=== PATIENT | female | born 1975 | race Caucasian/White ===

== ENCOUNTER 2016-12-01 10:37 | Emergency (ER) | payer OTHER ==
[~2016-12-01] VITALS: Ht 162.6 cm; Wt 175.3 kg
[~2016-12-01 10:37] MED LIST: ADVIL,NUPRIN,M200 MG PO; AMOXICILLIN875 MG PO; AUGMENTIN875 MG PO; BUSPAR10 M1 PO; BUSPAR30 MG PO; CARDIZEM30 MG PO; CELEXA20 MG PO; CLEOCIN300 MG PO; CLINDAMYCIN HC300 MG PO; CYANOCOBAL1000 MCG/2 IM; DAILY VALUE1 EACH PO; GUMMY SWIRLS1 EACH PO; KLONOPIN0.5 M1 PO; LEVOTHROID,S0.112 MG PO; LEVOTHYROXINE112 MCG PO; LEVOTHYROXINE125 MCG PO; LEVOTHYROXINE200 MC1 PO; MARTINIC1 EACH PO; METFORMIN HCL1000 MG PO; METFORMIN HCL500 MG PO; MOTRIN600 MG PO; NORCO 5/3251 TABLET PO; PEN-VEE K,VEET500 MG PO; PERCOCET 5/31 TABLET PO; PHENERGAN25 MG PR; PROAIR HFA8.5 GM IH; SYNTHROID112 MCG PO; TESSALON PERLE100 MG PO; TIZANIDINE HCL2 M1 PO; TRAMADOL HCL50 MG PO; ULTRAM50 MG PO; VITAMIN D2000 UNIT PO; ZOFRAN4 MG PO
[2016-12-01 12:43] LABS: EOSINOPHIL (%) 1.8 % (0-5); EOSINOPHIL COUNT 0.1 K/uL (0-0.3); HEMATOCRIT 41.6 % (36.0-46.0); IMMATURE GRANULOCYTE (%) 0.1 % (0.0-0.7); IMMATURE GRANULOCYTE COUNT 0.1 K/uL; LYMPHOCYTE COUNT 1.4 K/uL (1.0-2.8); MCH 30.8 PG (29.0-34.0); MCHC 33.4 G/DL (30.0-36.0); MEAN PLAT.VOLUME 9.3 uM^3 (9.5-12.4); MONOCYTE (%) 6.2 % (3-12); MONOCYTE COUNT 0.5 K/uL (0-0.8); NEUTROPHIL (%) 73.6 % (45-76); NEUTROPHIL COUNT 5.8 K/uL (1.8-6.4); PLATELET COUNT 261 K/uL (156-360); RBC DIS.WIDTH-CV 13.1 % (11.8-14.6); RBC DIS.WIDTH-SD 43.1 % (39-53); RED BLOOD COUNT 4.52 M/uL (3.80-5.20); WHITE BLOOD COUNT 7.9 K/uL (4.1-10.2)
[2016-12-01 12:51] LABS: CHLORIDE 105 mEq/L (99-109); POTASSIUM 3.9 mEq/L (3.7-5.4); SODIUM 140 mEq/L (136-147)
[2016-12-01 12:53] LABS: GLUCOSE 204 mg/dL (70-99)
[2016-12-01 12:54] LABS: ANION GAP 9 MEQ/L (2-14)
[2016-12-01 12:57] LABS: GFR ESTIMATE (CALCULATED) > 59 mL/min/
[2016-12-01 12:58] LABS: UREA NITROGEN (BUN) 9 mg/dL (9-23)
[2016-12-01] MEDS ORDERED: FIORICET 50-301 EACH PO (14:11)
[2016-12-01 14:26] VITALS: BP 128/75
== END 2016-12-01 14:27 | disposition home or self-care (01) ==
LOC: EME 10:37
PROVIDERS: Emergency Medicine
DX: R42 Dizziness and giddiness (principal); I10 Essential (primary) hypertension; G47.30 Sleep apnea, unspecified; E03.9 Hypothyroidism, unspecified; Z87.442 Personal history of urinary calculi; Z98.84 Bariatric surgery status
CPT/HCPCS: 70450; 80048; 85025; 93005; 99281; 99284

== ENCOUNTER 2017-01-12 13:15 | Emergency (ER) | payer OTHER ==
[~2017-01-12] VITALS: Ht 162.6 cm; Wt 171.2 kg
[~2017-01-12 13:15] MED LIST changes: +FIORICET 50-301 EACH PO
[2017-01-12 14:00] LABS: HEMATOCRIT 44.7 % (36.0-46.0); MCH 30.7 PG (29.0-34.0); MCHC 32.9 G/DL (30.0-36.0); MCV 93.3 FL (83-99); MEAN PLAT.VOLUME 9.2 uM^3 (9.5-12.4); PLATELET COUNT 295 K/uL (156-360); RBC DIS.WIDTH-CV 12.8 % (11.8-14.6); RBC DIS.WIDTH-SD 43.9 % (39-53); RED BLOOD COUNT 4.79 M/uL (3.80-5.20); WHITE BLOOD COUNT 7.7 K/uL (4.1-10.2)
[2017-01-12 14:08] LABS: CHLORIDE 103 mEq/L (99-109); POTASSIUM 4.4 mEq/L (3.7-5.4); SODIUM 138 mEq/L (136-147)
[2017-01-12] MEDS ORDERED: LORAZEPAM1 MG PO (14:09)
[2017-01-12] MEDS ORDERED: CITALOPRAM HBR20 MG PO (14:09)
[2017-01-12 14:11] LABS: GLUCOSE 304 mg/dL (70-99)
[2017-01-12 14:12] LABS: ANION GAP 14 MEQ/L (2-14); TOTAL BILIRUBIN 0.3 mg/dL (0.0-1.0)
[2017-01-12 14:14] LABS: ALKALINE PHOSPHATASE 144 IU/L (3-129); GFR ESTIMATE (CALCULATED) > 59 mL/min/
[2017-01-12 14:15] LABS: UREA NITROGEN (BUN) 16 mg/dL (9-23)
[2017-01-12 14:18] LABS: LIPASE 40 U/L (1.0-51.0)
[2017-01-12 14:23] LABS: QUANTITATIVE HCG < 4.0 MIU/ML
[2017-01-12 14:27] LABS: ADD MIUA? YES; BILIRUBIN NEGATIVE; BLOOD NEGATIVE; COLOR YELLOW ((YELLOW)); GLUCOSE (STRIP) >=500; KETONES NEGATIVE; LEUKOCYTES TRACE; NITRITE NEGATIVE; PROTEIN (STRIP) 30; SPECIFIC GRAVITY 1.025 (1.000-1.030); UROBILINOGEN 0.2 MG/DL (0.2-1.0)
[2017-01-12 14:42] LABS: BACTERIA RARE /HPF; EPITHELIAL CELLS 2+ /HPF; MUCUS TRACE /LPF; RED BLOOD CELLS 0-5 /HPF (0-5)
[2017-01-12 14:43] LABS: GRANULAR CASTS RARE /LPF
[2017-01-12] MEDS ORDERED: ULTRAM50 MG PO (15:59)
[2017-01-12 16:24] VITALS: BP 123/72
== END 2017-01-12 16:30 | disposition home or self-care (01) ==
LOC: EME 13:15
PROVIDERS: Nurse Practitioner Family
DX: L76.34 Postprocedural seroma of skin and subcutaneous tissue following other procedure (principal); Y83.8 Other surgical procedures as the cause of abnormal reaction of the patient, or of later complication, without mention of misadventure at the time of the procedure; Z98.890 Other specified postprocedural states; E11.65 Type 2 diabetes mellitus with hyperglycemia; R19.7 Diarrhea, unspecified; E66.01 Morbid (severe) obesity due to excess calories; E03.9 Hypothyroidism, unspecified; Z98.84 Bariatric surgery status; Z68.44 Body mass index [BMI] 60.0-69.9, adult
CPT/HCPCS: 76705; 80053; 81003; 83605; 83690; 84702; 85027; 99281; 99284

== ENCOUNTER 2017-02-12 18:49 | Emergency (ER) | payer OTHER ==
[~2017-02-12] VITALS: Ht 165.1 cm; Wt 158.7 kg
[~2017-02-12 18:49] MED LIST changes: +CITALOPRAM HBR20 MG PO; +LORAZEPAM1 MG PO
[2017-02-12 19:24] LABS: HEMATOCRIT 44.2 % (36.0-46.0); MCH 30.4 PG (29.0-34.0); MCHC 32.4 G/DL (30.0-36.0); PLATELET COUNT 319 K/uL (156-360); RBC DIS.WIDTH-CV 13.1 % (11.8-14.6); RBC DIS.WIDTH-SD 44.6 % (39-53); WHITE BLOOD COUNT 6.5 K/uL (4.1-10.2)
[2017-02-12 19:32] LABS: CHLORIDE 107 mEq/L (99-109); POTASSIUM 4.4 mEq/L (3.7-5.4); SODIUM 142 mEq/L (136-147)
[2017-02-12 19:34] LABS: GLUCOSE 172 mg/dL (70-99)
[2017-02-12 19:35] LABS: ANION GAP 10 MEQ/L (2-14)
[2017-02-12 19:36] LABS: TOTAL BILIRUBIN 0.4 mg/dL (0.0-1.0)
[2017-02-12 19:37] LABS: ALKALINE PHOSPHATASE 91 IU/L (3-129)
[2017-02-12 19:38] LABS: GFR ESTIMATE (CALCULATED) > 59 mL/min/
[2017-02-12 19:39] LABS: UREA NITROGEN (BUN) 15 mg/dL (9-23)
[2017-02-12 19:46] LABS: QUANTITATIVE HCG < 4.0 MIU/ML
[2017-02-12 21:00] LABS: INTERNAL CONTROL VALID? YES
[2017-02-12 21:38] LABS: C DIFF TOXIN NEGATIVE (NEGATIVE)
[2017-02-12 21:49] LABS: PROBE CHECK PASS; SPECIMEN PROCESSING CONTROL PASS
[2017-02-12 22:59] VITALS: BP 100/65
== END 2017-02-12 23:06 | disposition home or self-care (01) ==
LOC: EME 18:49
PROVIDERS: Physician Assistant
DX: R10.9 Unspecified abdominal pain (principal); R19.7 Diarrhea, unspecified; F32.9 Major depressive disorder, single episode, unspecified; I10 Essential (primary) hypertension; G43.909 Migraine, unspecified, not intractable, without status migrainosus; G47.30 Sleep apnea, unspecified; E03.9 Hypothyroidism, unspecified; E66.9 Obesity, unspecified; Z98.84 Bariatric surgery status
CPT/HCPCS: 74177; 80053; 81003; 83630; 84702; 85027; 87177; 87493; 87506; 99281; 99284; J1200; J2270; J2765; J7030

== ENCOUNTER 2017-03-27 00:16 | Emergency (ER) | payer OTHER ==
[~2017-03-27] VITALS: Ht 162.6 cm; Wt 169.0 kg
[2017-03-27 02:36] LABS: EOSINOPHIL (%) 1.6 % (0-5); EOSINOPHIL COUNT 0.2 K/uL (0-0.3); HEMATOCRIT 44.7 % (36.0-46.0); IMMATURE GRANULOCYTE (%) 0.5 % (0.0-0.7); IMMATURE GRANULOCYTE COUNT 0.1 K/uL; INSTRUMENT ABS NEUTROPHIL CT 7.7 K/uL; LYMPHOCYTE COUNT 1.5 K/uL (1.0-2.8); MCH 30.4 PG (29.0-34.0); MCHC 32.7 G/DL (30.0-36.0); MCV 92.9 FL (83-99); MEAN PLAT.VOLUME 9.4 uM^3 (9.5-12.4); MONOCYTE COUNT 0.7 K/uL (0-0.8); NEUTROPHIL (%) 75.5 % (45-76); NEUTROPHIL COUNT 7.7 K/uL (1.8-6.4); PLATELET COUNT 281 K/uL (156-360); RBC DIS.WIDTH-CV 12.2 % (11.8-14.6); RBC DIS.WIDTH-SD 41.5 % (39-53); RED BLOOD COUNT 4.81 M/uL (3.80-5.20); WHITE BLOOD COUNT 10.2 K/uL (4.1-10.2)
[2017-03-27 02:47] LABS: CHLORIDE 97 mEq/L (99-109); POTASSIUM 4.9 mEq/L (3.7-5.4); SODIUM 137 mEq/L (136-147)
[2017-03-27 02:49] LABS: GLUCOSE 249 mg/dL (70-99)
[2017-03-27 02:50] LABS: ANION GAP 11 MEQ/L (2-14)
[2017-03-27 02:53] LABS: GFR ESTIMATE (CALCULATED) > 59 mL/min/
[2017-03-27 02:54] LABS: UREA NITROGEN (BUN) 19 mg/dL (9-23)
[2017-03-27 05:05] VITALS: BP 122/66
== END 2017-03-27 05:05 | disposition home or self-care (01) ==
LOC: EME 00:16
PROVIDERS: Emergency Medicine
DX: L02.211 Cutaneous abscess of abdominal wall (principal); T81.89XA Other complications of procedures, not elsewhere classified, initial encounter; T85.79XA Infection and inflammatory reaction due to other internal prosthetic devices, implants and grafts, initial encounter; I10 Essential (primary) hypertension; F32.9 Major depressive disorder, single episode, unspecified; Z87.442 Personal history of urinary calculi
CPT/HCPCS: 74177; 80048; 83605; 85025; 87040; 99281; 99284; J3010; J7030

== ENCOUNTER 2017-04-16 17:04 | Inpatient (IN) | payer OTHER ==
[~2017-04-16] VITALS: Ht 165.1 cm; Wt 170.6 kg
[2017-04-16 19:08] LABS: EOSINOPHIL (%) 0.1 % (0-5); HEMATOCRIT 38.7 % (36.0-46.0); IMMATURE GRANULOCYTE (%) 0.6 % (0.0-0.7); IMMATURE GRANULOCYTE COUNT 0.1 K/uL; INSTRUMENT ABS NEUTROPHIL CT 15.9 K/uL; LYMPHOCYTE COUNT 0.8 K/uL (1.0-2.8); MCV 93.7 FL (83-99); MEAN PLAT.VOLUME 8.9 uM^3 (9.5-12.4); MONOCYTE COUNT 1.3 K/uL (0-0.8); NEUTROPHIL (%) 87.5 % (45-76); NEUTROPHIL COUNT 15.9 K/uL (1.8-6.4); PLATELET COUNT 267 K/uL (156-360); RBC DIS.WIDTH-CV 12.9 % (11.8-14.6); RBC DIS.WIDTH-SD 44.1 % (39-53); RED BLOOD COUNT 4.13 M/uL (3.80-5.20); WHITE BLOOD COUNT 18.2 K/uL (4.1-10.2)
[2017-04-16 19:16] LABS: CHLORIDE 99 mEq/L (99-109); POTASSIUM 4.9 mEq/L (3.7-5.4); SODIUM 137 mEq/L (136-147)
[2017-04-16 19:18] LABS: GLUCOSE 205 mg/dL (70-99)
[2017-04-16 19:19] LABS: ANION GAP 9 MEQ/L (2-14)
[2017-04-16 19:22] LABS: GFR ESTIMATE (CALCULATED) > 59 mL/min/; UREA NITROGEN (BUN) 11 mg/dL (9-23)
[2017-04-16 23:11] LABS: BILIRUBIN NEGATIVE; BLOOD NEGATIVE; COLOR YELLOW ((YELLOW)); GLUCOSE (STRIP) NEGATIVE; KETONES 80; LEUKOCYTES NEGATIVE; NITRITE NEGATIVE; PROTEIN (STRIP) NEGATIVE; UROBILINOGEN 0.2 MG/DL (0.2-1.0)
[2017-04-16 23:13] LABS: ADD MIUA? NO; UCUL ADDED? NO
[2017-04-17] VITALS (8 sets, daily range): BP systolic 100–131; BP diastolic 52–75
[2017-04-17] MEDS ORDERED: VICTOZA0.6 MG/0.1 SC (00:41)
[2017-04-17] MEDS ORDERED: OXYCODONE HCL10 MG PO (00:42)
[2017-04-17 02:32] LABS: POINT-OF-CARE METER ID UU14100415
[2017-04-17 07:32] LABS: POINT-OF-CARE METER ID UU14162508
[2017-04-17 12:26] LABS: HEMATOCRIT 36.3 % (36.0-46.0); MCH 31.1 PG (29.0-34.0); MCHC 33.3 G/DL (30.0-36.0); MCV 93.3 FL (83-99); MEAN PLAT.VOLUME 9.2 uM^3 (9.5-12.4); PLATELET COUNT 263 K/uL (156-360); RBC DIS.WIDTH-CV 12.9 % (11.8-14.6); RBC DIS.WIDTH-SD 44.2 % (39-53); RED BLOOD COUNT 3.89 M/uL (3.80-5.20); WHITE BLOOD COUNT 19.3 K/uL (4.1-10.2)
[2017-04-17 12:26] LABS: POINT-OF-CARE METER ID UU14162508
[2017-04-17 16:15] LABS: POINT-OF-CARE METER ID UU14162508
[2017-04-17 21:40] LABS: POINT-OF-CARE METER ID UU14162508
[2017-04-18 04:26] VITALS: BP 115/63
[2017-04-18 06:48] LABS: HEMATOCRIT 32.8 % (36.0-46.0); MCH 30.2 PG (29.0-34.0); MCHC 31.7 G/DL (30.0-36.0); MCV 95.3 FL (83-99); MEAN PLAT.VOLUME 9.6 uM^3 (9.5-12.4); PLATELET COUNT 256 K/uL (156-360); RBC DIS.WIDTH-CV 12.9 % (11.8-14.6); RBC DIS.WIDTH-SD 44.5 % (39-53); RED BLOOD COUNT 3.44 M/uL (3.80-5.20); WHITE BLOOD COUNT 12.5 K/uL (4.1-10.2)
[2017-04-18 07:15] VITALS: BP 115/65
[2017-04-18 07:18] LABS: ALKALINE PHOSPHATASE 91 IU/L (3-129); ANION GAP 8 MEQ/L (2-14); CHLORIDE 102 MEQ/L (99-109); GFR ESTIMATE (CALCULATED) > 59 mL/min/; GLUCOSE 200 mg/dL (70-99); SAMPLE HEMOLYSIS CHECK 0; SAMPLE ICTERIC CHECK 0; SAMPLE LIPEMIA CHECK 0; SODIUM 139 MEQ/L (136-147); TOTAL BILIRUBIN 0.5 MG/DL (0.0-1.0); UREA NITROGEN (BUN) 12 mg/dL (9-23)
[2017-04-18 07:24] LABS: POINT-OF-CARE METER ID UU14162508
[2017-04-18 07:37] LABS: POTASSIUM 3.2 MEQ/L (3.7-5.4)
[2017-04-18 12:08] LABS: POINT-OF-CARE METER ID UU14162508
[2017-04-18 13:00] VITALS: BP 116/81
[2017-04-18 15:40] VITALS: BP 108/61
[2017-04-18 16:51] LABS: POINT-OF-CARE METER ID UU14162508
[2017-04-18 23:33] VITALS: BP 100/56
[2017-04-19 07:30] VITALS: BP 123/74
[2017-04-19 10:41] LABS: HEMATOCRIT 31.6 % (36.0-46.0); MCH 30.5 PG (29.0-34.0); MCHC 31.6 G/DL (30.0-36.0); MCV 96.3 FL (83-99); MEAN PLAT.VOLUME 9.3 uM^3 (9.5-12.4); PLATELET COUNT 269 K/uL (156-360); RBC DIS.WIDTH-CV 12.9 % (11.8-14.6); RBC DIS.WIDTH-SD 45.9 % (39-53); RED BLOOD COUNT 3.28 M/uL (3.80-5.20); WHITE BLOOD COUNT 6.8 K/uL (4.1-10.2)
[2017-04-19 15:55] VITALS: BP 111/69
[2017-04-20] VITALS: BP 108/54
[2017-04-20 06:41] LABS: POINT-OF-CARE METER ID UU14162508
[2017-04-20 08:00] VITALS: BP 112/53
[2017-04-20 08:08] LABS: EOSINOPHIL (%) 3.8 % (0-5); EOSINOPHIL COUNT 0.2 K/uL (0-0.3); HEMATOCRIT 34.5 % (36.0-46.0); IMM.PLATELET FRACTION 1.1 (1-7); IMMATURE GRANULOCYTE (%) 0.7 % (0.0-0.7); INSTRUMENT ABS NEUTROPHIL CT 4.6 K/uL; LYMPHOCYTE COUNT 0.7 K/uL (1.0-2.8); MCH 29.7 PG (29.0-34.0); MCHC 31.3 G/DL (30.0-36.0); MCV 94.8 FL (83-99); MEAN PLAT.VOLUME 9.2 uM^3 (9.5-12.4); MONOCYTE (%) 10.1 % (3-12); MONOCYTE COUNT 0.6 K/uL (0-0.8); NEUTROPHIL (%) 74.3 % (45-76); NEUTROPHIL COUNT 4.6 K/uL (1.8-6.4); PLATELET COUNT 318 K/uL (156-360); RBC DIS.WIDTH-CV 12.7 % (11.8-14.6); RED BLOOD COUNT 3.64 M/uL (3.80-5.20); WHITE BLOOD COUNT 6.1 K/uL (4.1-10.2)
[2017-04-20 08:39] LABS: ANION GAP 11 MEQ/L (2-14); CHLORIDE 106 MEQ/L (99-109); GFR ESTIMATE (CALCULATED) 37 mL/min/; GLUCOSE 173 mg/dL (70-99); MAGNESIUM 2.1 mg/dl (1.3-2.7); POTASSIUM 4.3 MEQ/L (3.7-5.4); SAMPLE HEMOLYSIS CHECK 0; SAMPLE ICTERIC CHECK 0; SAMPLE LIPEMIA CHECK 0; SODIUM 140 MEQ/L (136-147); UREA NITROGEN (BUN) 15 mg/dL (9-23); VANCOMYCIN, TROUGH 31.6 MCG/ML (10-20)
[2017-04-20 11:43] LABS: POINT-OF-CARE METER ID UU14162508
[2017-04-20 16:01] VITALS: BP 129/61
[2017-04-20 16:47] LABS: POINT-OF-CARE METER ID UU14162508
[2017-04-20 21:17] LABS: POINT-OF-CARE METER ID UU14162508
[2017-04-21 00:10] VITALS: BP 138/74
[2017-04-21 06:40] LABS: POINT-OF-CARE METER ID UU14162508
[2017-04-21 06:45] VITALS: BP 103/58
[2017-04-21 08:22] LABS: ANION GAP 10 MEQ/L (2-14); CHLORIDE 106 MEQ/L (99-109); GFR ESTIMATE (CALCULATED) 33 mL/min/; GLUCOSE 153 mg/dL (70-99); POTASSIUM 4.1 MEQ/L (3.7-5.4); SAMPLE HEMOLYSIS CHECK 0; SAMPLE ICTERIC CHECK 0; SAMPLE LIPEMIA CHECK 0; SODIUM 141 MEQ/L (136-147); UREA NITROGEN (BUN) 16 mg/dL (9-23)
[2017-04-21 11:45] LABS: POINT-OF-CARE METER ID UU14162508
[2017-04-21 16:26] VITALS: BP 115/70
[2017-04-21 16:50] LABS: POINT-OF-CARE METER ID UU14162508
[2017-04-21 18:54] LABS: URIC ACID 5.4 mg/dL (3.1-9.2)
[2017-04-21 19:04] LABS: CREATINE KINASE < 10 IU/L (1-294)
[2017-04-21 21:51] LABS: POINT-OF-CARE METER ID UU14162508
[2017-04-21 22:01] LABS: ADD MIUA? YES; BILIRUBIN NEGATIVE; BLOOD MODERATE; COLOR YELLOW ((YELLOW)); GLUCOSE (STRIP) NEGATIVE; KETONES NEGATIVE; LEUKOCYTES LARGE; NITRITE NEGATIVE; PROTEIN (STRIP) NEGATIVE; SPECIFIC GRAVITY 1.008 (1.000-1.030); UROBILINOGEN 0.2 MG/DL (0.2-1.0)
[2017-04-21 22:27] LABS: UR CREATININE CONCENTRATION 69.3 MG/DL
[2017-04-21 22:42] LABS: CASTS NONE SEEN /LPF; EPITHELIAL CELLS 3+ /HPF; MUCUS NONE SEEN /LPF
[2017-04-21 22:43] LABS: BACTERIA RARE /HPF; RED BLOOD CELLS NONE SEEN /HPF (0-5); WHITE BLOOD CELLS 20-30 /HPF (0-5)
[2017-04-22 00:27] VITALS: BP 121/57
[2017-04-22 06:41] LABS: C3 COMPLEMENT 213 MG/DL (58-170); C4 COMPLEMENT 49 MG/DL (10-40)
[2017-04-22 06:47] LABS: ANION GAP 11 MEQ/L (2-14); CHLORIDE 104 MEQ/L (99-109); GFR ESTIMATE (CALCULATED) 33 mL/min/; GLUCOSE 156 mg/dL (70-99); POTASSIUM 4.3 MEQ/L (3.7-5.4); SAMPLE HEMOLYSIS CHECK 0; SAMPLE ICTERIC CHECK 0; SAMPLE LIPEMIA CHECK 0; SODIUM 139 MEQ/L (136-147); UREA NITROGEN (BUN) 15 mg/dL (9-23)
[2017-04-22 07:00] LABS: POINT-OF-CARE METER ID UU14162508
[2017-04-22 12:09] LABS: POINT-OF-CARE METER ID UU14162508
[2017-04-22] MEDS ORDERED: CIPROFLOXACIN500 M1 PO (13:40)
== END 2017-04-22 15:50 | disposition home health service (06) | DRG 872 ==
LOC: EME 17:04 → 2EAST 04-17 02:11 → EDOF 04-17 02:11 → 2EAST 04-17 04:37
PROVIDERS: Hospitalist; Internal Medicine; Surgery
DX: A41.9 Sepsis, unspecified organism (principal); T85.79XA Infection and inflammatory reaction due to other internal prosthetic devices, implants and grafts, initial encounter; N17.9 Acute kidney failure, unspecified; L02.211 Cutaneous abscess of abdominal wall; R09.02 Hypoxemia; J98.11 Atelectasis; E66.01 Morbid (severe) obesity due to excess calories; T81.4XXA Infection following a procedure, initial encounter; R11.2 Nausea with vomiting, unspecified; N14.4 Toxic nephropathy, not elsewhere classified; Z98.84 Bariatric surgery status; T36.8X5A Adverse effect of other systemic antibiotics, initial encounter; E11.9 Type 2 diabetes mellitus without complications; K43.9 Ventral hernia without obstruction or gangrene; I95.9 Hypotension, unspecified; Z68.44 Body mass index [BMI] 60.0-69.9, adult; T37.0X5A Adverse effect of sulfonamides, initial encounter; E03.9 Hypothyroidism, unspecified; I10 Essential (primary) hypertension; E78.5 Hyperlipidemia, unspecified; R33.9 Retention of urine, unspecified; Y83.2 Surgical operation with anastomosis, bypass or graft as the cause of abnormal reaction of the patient, or of later complication, without mention of misadventure at the time of the procedure; A49.02 Methicillin resistant Staphylococcus aureus infection, unspecified site; Z87.442 Personal history of urinary calculi; Z72.0 Tobacco use; Z79.84 Long term (current) use of oral hypoglycemic drugs
CPT/HCPCS: 71020; 71275; 72192; 74177; 80048; 80048 91; 80076; 80202; 81003; 82436; 82550; 82565; 82570; 82948; 83605; 83735; 84156; 84300; 84520; 84550; 85025; 85027; 85379; 86160; 87040; 87070; 87075; 87077; 87086; 87147; 87186; 87205; 89190; 93005; 94799; 99281; 99285; J0696; J1100; J1650; J1815; J2270; J2543; J3010; J3370; J7030; J7050

== ENCOUNTER 2017-05-17 04:22 | Emergency (ER) | payer OTHER ==
[~2017-05-17] VITALS: Ht 165.1 cm; Wt 167.0 kg
[~2017-05-17 04:22] MED LIST changes: +CIPROFLOXACIN500 M1 PO; +OXYCODONE HCL10 MG PO; +VICTOZA0.6 MG/0.1 SC
[2017-05-17 05:26] LABS: CHLORIDE 101 mEq/L (99-109); POTASSIUM 4.6 mEq/L (3.7-5.4); SODIUM 136 mEq/L (136-147)
[2017-05-17 05:27] LABS: MAGNESIUM 1.6 mg/dL (1.3-2.7)
[2017-05-17 05:28] LABS: GLUCOSE 175 mg/dL (70-99)
[2017-05-17 05:29] LABS: ANION GAP 5 MEQ/L (2-14)
[2017-05-17 05:32] LABS: GFR ESTIMATE (CALCULATED) > 59 mL/min/; UREA NITROGEN (BUN) 23 mg/dL (9-23)
[2017-05-17 05:34] LABS: CREATINE KINASE 16 IU/L (1-294)
[2017-05-17 06:04] LABS: EOSINOPHIL (%) 6.1 % (0-5); EOSINOPHIL COUNT 0.4 K/uL (0-0.3); HEMATOCRIT 31.4 % (36.0-46.0); IMMATURE GRANULOCYTE (%) 0.3 % (0.0-0.7); LYMPHOCYTE COUNT 1.5 K/uL (1.0-2.8); MCH 27.9 PG (29.0-34.0); MCHC 31.2 G/DL (30.0-36.0); MCV 89.5 FL (83-99); MEAN PLAT.VOLUME 9.1 uM^3 (9.5-12.4); MONOCYTE (%) 7.6 % (3-12); MONOCYTE COUNT 0.5 K/uL (0-0.8); NEUTROPHIL (%) 62.2 % (45-76); PLATELET COUNT 335 K/uL (156-360); RBC DIS.WIDTH-CV 13.2 % (11.8-14.6); RBC DIS.WIDTH-SD 43.4 % (39-53); RED BLOOD COUNT 3.51 M/uL (3.80-5.20); WHITE BLOOD COUNT 6.4 K/uL (4.1-10.2)
[2017-05-17] MEDS ORDERED: VALIUM2 MG PO (06:10)
[2017-05-17 06:25] VITALS: BP 104/74
== END 2017-05-17 06:27 | disposition home or self-care (01) ==
LOC: EME 04:22
PROVIDERS: Emergency Medicine
DX: M62.838 Other muscle spasm (principal); Z98.890 Other specified postprocedural states; E03.9 Hypothyroidism, unspecified; E11.9 Type 2 diabetes mellitus without complications; Z98.84 Bariatric surgery status
CPT/HCPCS: 70450; 80048; 82550; 83735; 85025; 99281; 99284